=== PATIENT | male | born 1955 | race Caucasian/White ===

== ENCOUNTER 2016-08-23 10:57 | Emergency (ER) | payer OTHER ==
[2016-08-23] MEDS ORDERED: LIDOCAINE 1%/EPINEPHRINE INJ 20 ML VIAL INJ ONE (11:37)
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
[2016-08-23] MEDS ORDERED: LIDOCAINE 1.5% INJ-MPF (15 MG/ML) 20 ML AMPUL INJ ONE (13:12)
[2016-08-23 13:31] VITALS: BP 120/80
== END 2016-08-23 13:31 | disposition home or self-care (01) ==
LOC: ER 10:57
PROC: 0HQKXZZ Repair Right Lower Leg Skin, External Approach (ICD-10-PCS; principal; 2016-08-23)
DX: S81.011A Laceration without foreign body, right knee, initial encounter (principal); W27.8XXA Contact with other nonpowered hand tool, initial encounter; E11.9 Type 2 diabetes mellitus without complications
CPT/HCPCS: 99282